=== PATIENT | male | born 1975 ===

== ENCOUNTER 2018-04-23 20:18 | Emergency (ER) | payer SELFPAY ==
[2018-04-23] MEDS ORDERED: Oxycodone/Acetaminophen 5/325 mg Tab PO STA (20:45)
[2018-04-23] MEDS ORDERED: Oxycodone/Acetaminophen 5/325 mg Tab ONE (20:51)
--- NOTE | 2018-04-23 21:48 | C.PDOC ---
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 Patient states that a heavy object fell on his foot and has has bruising on top of his foot. Denies having weakness and numbness. Time Seen by Provider: 04/23/18 20:43 Chief Complaint (Nursing): Lower Extremity Problem/Injury History Per: Patient History/Exam Limitations: no limitations Onset/Duration Of Symptoms: Hrs Current Symptoms Are (Timing): Still Present Severity: Moderate Past Medical History Reviewed: Historical Data, Nursing Documentation, Vital Signs Vital Signs: Last Vital Signs Temp 98.9 F 04/23/18 20:35 Pulse 82 04/23/18 20:35 Resp 20 04/23/18 20:35 BP 127/83 04/23/18 20:35 Pulse Ox 98 04/23/18 20:35 - Medical History PMH: No Chronic Diseases Surgical History: No Surg Hx Family History: States: No Known Family Hx - Social History Hx Alcohol Use: No Hx Substance Use: No Review Of Systems Except As Marked, All Systems Reviewed And Found Negative. Musculoskeletal: Positive for: Foot Pain (right foot pain) Neurological: Negative for: Weakness, Numbness Physical Exam - Physical Exam Appears: Non-toxic, No Acute Distress Skin: Normal Color, Warm, Dry Head: Atraumatic, Normacephalic Eye(s): bilateral: Normal Inspection Neck: Supple Chest: Symmetrical Extremity: Normal ROM, Tenderness (tenderness to right great toe and 2nd toe), No Swelling Neurological/Psych: Oriented x3, Normal Speech ED Course And Treatment O2 Sat by Pulse Oximetry: 98 (RA) Pulse Ox Interpretation: Normal - Other Rad Foot xray X-Ray: Interpreted by Me Interpretation: no fractures Progress Note: X-Ray-Right Foot ordered. Patient treated with Percocet PO. Ice has been applied to the foot. Patient has been provided ortho shoe and crutches. Disposition - Disposition Referrals: Dina Albarado DPM [Staff Provider] - Anjel Hernandez DPM [Staff Provider] - Disposition: HOME/ ROUTINE Disposition Time: 22:09 Condition: STABLE Additional Instructions: Follow up with Windshield Technician within 1-2 days. Return to ED if feel worse. 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 - Scribe Statement The provider has reviewed the documentation as recorded by the Scribe Kimber Umanzor Provider Attestation All medical record entries made by the Scribe were at my direction and personally dictated by me. I have reviewed the chart and agree that the record accurately reflects my personal performance of the history, physical exam, medical decision making, and the department course for this patient. I have also personally directed, reviewed, and agree with the discharge instructions and disposition.
[2018-04-23 22:36] VITALS: BP 127/77; PULSE 62; RESP 18; TEMP 97.7; O2SAT 100
--- NOTE | 2018-04-24 08:29 | RAD ---
Date of service: 04/23/2018 PROCEDURE: Right Foot Radiographs. HISTORY: heavy object fell on his foot COMPARISON: None. FINDINGS: BONES: Normal. No fracture. Incidentally noted are multiple medial sesamoid bones-compatible with developmental variation. The 5th middle and distal phalanges are developmentally fused. JOINTS: Trace 1st metatarsal-phalangeal joint space narrowing/are compatible with early degenerative changes. SOFT TISSUES: Normal. OTHER FINDINGS: Isidro's tendon insetional enesthesophyte. IMPRESSION: No fracture or dislocation. Other findings as above.
== END 2018-04-23 22:36 | disposition home or self-care (01) ==
LOC: C.ER 20:18
DX: S90.31XA Contusion of right foot, initial encounter (principal); W20.8XXA Other cause of strike by thrown, projected or falling object, initial encounter